=== PATIENT | male | born 1990 | race Caucasian/White ===

== ENCOUNTER 2017-09-29 13:00 | Emergency (ER) | payer BC ==
--- NOTE | 2017-09-29 14:31 | ERPHSYRPT ---
- History of Present Illness Time Seen by Provider: 09/29/17 13:15 Source: patient Exam Limitations: clinical condition Patient Subjective Stated Complaint: Pt states "On morning I fell up my stairs and hurt my right shoulder. [facility] and they x rayed my back but not my shoulder. They gave me a shot of morphine and said I was fine. My right shoulder is killing me and I know there is something wrong with it." Triage Nursing Assessment: Pt alert and oriented X 3, skin pwd. Pt ambulates with an upright steady gait, able to speak in clear full sentences. Pt holding right shoulder. no deformity or crepitus noted. Physician History: PATIENT STATES HE FELL 2 DAYS AGO AT 4AM AFTER DRINKING, EVALUATED AT [facility] INITIALLY, NOW COMPLAINS OF RIGHT SHOULDER PAIN ASSOCIATED WITH SWELLING. ADMITS TO LIMITED RANGE OF MOTION IN RIGHT SHOULDER. Occurred: days ago Reason for Fall: lost balance Injuries/Pain Location: neck, upper extremity Loss of Consciousness: no loss of consciousness Severity of Pain-Max: moderate Severity of Pain-Current: moderate Associated Symptoms (Fall): extremity injury Allergies/Adverse Reactions: amoxicillin Allergy (Verified 09/29/17 13:15) Hives Penicillins Allergy (Verified 09/29/17 13:15) Hives Hx Tetanus, Diphtheria Vaccination/Date Given: Yes Hx Influenza Vaccination/Date Given: No Hx Pneumococcal Vaccination/Date Given: No Immunizations Up to Date: Yes - Review of Systems Constitutional: No Fever, No Chills Eyes: No Symptoms Ears, Nose, & Throat: No Symptoms Respiratory: No Cough, No Dyspnea Cardiac: No Chest Pain, No Edema, No Syncope Abdominal/Gastrointestinal: No Abdominal Pain, No Nausea, No Vomiting, No Diarrhea Genitourinary Symptoms: No Dysuria Musculoskeletal: Neck Pain, Injury, Joint Pain, Joint Swelling, No Back Pain Skin: No Rash Neurological: No Dizziness, No Focal Weakness, No Sensory Changes Psychological: No Symptoms Endocrine: No Symptoms All Other Systems: Reviewed and Negative - Past Medical History Pertinent Past Medical History: Yes Other Medical History: htn - Past Surgical History Past Surgical History: No - Social History Smoking Status: Current every day smoker How long have you smoked: 8 years Exposure to second hand smoke: Yes Drug Use: none Patient Lives Alone: No - Nursing Vital Signs Nursing Vital Signs: Initial Vital Signs Temperature 98.2 F 09/29/17 13:09 Pulse Rate 100 H 09/29/17 13:09 Respiratory Rate 18 09/29/17 13:09 Blood Pressure 168/97 09/29/17 13:09 O2 Sat by Pulse Oximetry 96 09/29/17 13:09 Pain Scale Pain Intensity 10 - Dara Coma Score Best Eye Response ([place]): (4) open spontaneously Best Verbal Response ([place]): (5) oriented Best Motor Response ([place]): (6) obeys commands Dara Total: 15 - Physical Exam General Appearance: no apparent distress, alert Head Injury: no evidence of injury Eye Exam: PERRL/EOMI ENT Exam: airway nml Neck Exam: supple, full range of motion, normal inspection, tenderness ( MODERATE POST CERVICAL SPINAL TENDERNESS) Respiratory/Chest Exam: normal breath sounds, No chest tenderness, No respiratory distress Cardiovascular Exam: normal heart sounds, regular rate/rhythm Gastrointestinal Exam: soft, normal bowel sounds (NONTENDNER), No tenderness, No distention, No guarding, No ecchymosis Back Exam: normal inspection, normal range of motion, No vertebral tenderness Extremity Exam: pelvis stable, limited range of motion (RIGHT SHOULDER WITH HUMERAL HEAD TENDERNESS, SWELLING , LIMITED RANGE OF MOTION, NO CREPITUS OR ECCHYMOSIS, RIGHT RADIAL PULSE 2+, TENDERNESS OVER RIGHT MID TO MEDIAL CLAVICLE, MINIMAL SWELLING, NO CREPITUS OR ECCHYMOSIS), No deformities Peripheral Pulses: carotid (R): 2+, carotid (L): 2+, femoral (R): 2+, femoral (L ): 2+, dorsalis-pedis (R): 2+, dorsalis-pedis (L): 2+ Neurologic Exam: alert, oriented x 3, cooperative, sensation nml, No motor deficits Skin Exam: normal color, warm, dry SpO2 Interpretation: normal SpO2: 96 Oxygen Delivery: Room Air - Radiology Exams Chest X-ray Interpretation: Interpreted by me, Negative Right Ribs X-ray Interpretation: Interpreted by me, No Fracture Right Shoulder X-ray Interpretation: Interpreted by me, Negative, No Fracture (NO DISLOCATION) Ordered Tests: Active Orders 24 hr Category Date Time Status Sling Application STAT Care 09/29/17 15:09 Ordered CHEST 2 VIEWS (PA AND LAT) Stat Exams 09/29/17 13:41 Ordered CLAVICLE Stat Exams 09/29/17 13:36 Stop Req RIBS UNILATERAL Stat Exams 09/29/17 13:38 Ordered SHOULDER Stat Exams 09/29/17 13:37 Ordered - Progress Progress Note: 09/29/17 14:55 APPLICATION LEFT ARM SLING Counseled pt/family regarding: diagnosis, need for follow-up, rad results - Departure Time of Disposition: 15:40 Departure Disposition: Home Clinical Impression: INTERNAL DERINGEMENT RIGHT SHOULDER, RIGHT CHEST WALL CONTUSIONS Condition: Stable Critical Care Time: No Additional Instructions: WEAR ARM SLING FOR COMFORT, REMOVE AFTER 3-4 DAYS. PERCOGESIC EVERY 4 HOURS FOR PAIN. FOLLOWUP WITH YOUR PRIMARY CARE PROVIDER IN 1 WEEK. Prescriptions: Acetaminophen/Diphenhydramine [Percogesic 325-12.5 mg Tablet] 1 each PO Q4H PRN PRN #15 tablet PRN Reason: Pain
[2017-09-29 15:41] VITALS: BP 150/70; PULSE 88; O2SAT 98
--- NOTE | 2017-09-29 19:20 | XRAY ---
Indication: Right-sided pain following fall 3 days ago. Comparison: None PA/lateral chest demonstrates normal heart and lungs. Bony thorax intact.
--- NOTE | 2017-09-29 19:22 | XRAY ---
Indication: Pain following fall 3 days ago. Comparison: None 3 views of the right shoulder obtained. No bony, articular, or soft tissue abnormalities.
--- NOTE | 2017-09-29 19:22 | XRAY ---
Indication: Pain following fall 3 days ago. Comparison: None 2 views of the right ribs obtained. No bony, articular, or soft tissue abnormalities.
== END 2017-09-29 15:49 | disposition home or self-care (01) ==
LOC: ED 13:00
DX: S49.91XD Unspecified injury of right shoulder and upper arm, subsequent encounter (principal); S20.211D Contusion of right front wall of thorax, subsequent encounter
CPT/HCPCS: 71046; 71100; 73030; 99283